=== PATIENT | male | born 1960 | race Caucasian/White ===

== ENCOUNTER 2019-05-25 04:55 | Day surgery (SDC) | payer OTHER ==
[~2019-05-25 04:55] MED LIST: ELIQUIS5 MG PO; INTEGRA F CAPS1 EACH PO; NORVASC5 MG PO; ULTRACET PO; XYZAL5 MG PO
[2019-05-25] MEDS ORDERED: ULTRACET PO (08:16)
== END 2019-05-25 10:30 | disposition home or self-care (01) ==
LOC: CIR.AMB 04:55
DX: C83.33 Diffuse large B-cell lymphoma, intra-abdominal lymph nodes (principal); I82.B12 Acute embolism and thrombosis of left subclavian vein